=== PATIENT | female | born 1995 | race Caucasian/White ===

== ENCOUNTER 2018-01-04 05:48 | Emergency (ER) | payer BC, OTHER ==
--- NOTE | 2018-01-04 06:14 | ED Physician Documentation ---
PD HPI NECK PAIN - Stated complaint Stated Complaint: NECK PAIN - Chief complaint Chief Complaint: Back Pain - History obtained from History obtained from: Patient - History of Present Illness Timing - onset: Enter time (03:00), Today Timing - duration: Hours Timing - details: Abrupt onset Pain level now: 5 Location: Mid, Lower, Left Quality: Pain, Spasm Associated symptoms: No: Fever, Weakness, Numbness Improves with: Rest Worsened by: Movement Similar symptoms before: Has not had sx before Recently seen: Not recently seen Review of Systems Constitutional: denies: Fever, Chills, Sweats Skin: denies: Rash Musculoskeletal: reports: Neck pain. denies: Back pain, Extremity pain, Extremity swelling Neurologic: denies: Focal weakness, Numbness, Headache PD PAST MEDICAL HISTORY - Past Medical History Past Medical History: Yes Psych: Anxiety - Past Surgical History Past Surgical History: No - Present Medications Home Medications: Ambulatory Orders Medication Instructions Recorded Confirmed Cyclobenzaprine [Flexeril] 10 mg PO TID PRN #20 tablet 01/04/18 Hydrocodone/Acetaminophen 1 - 2 each PO Q6HR PRN #14 tablet 01/04/18 [Hydrocodon-Acetaminophen 5-325] Sertraline HCl [Zoloft] 100 mg PO 01/04/18 - Allergies Allergies/Adverse Reactions: Allergies Allergy/AdvReac Type Severity Reaction Status Date / Time No Known Drug Allergies Allergy Verified 01/04/18 05:54 - Social History Does the pt smoke?: No Smoking Status: Never smoker Does the pt drink ETOH?: Yes Does the pt have substance abuse?: No - Immunizations Immunizations are current?: Yes - POLST Patient has POLST: No PD ED PE NORMAL - Vitals Vital signs reviewed: Yes - General General: Alert and oriented X 3, No acute distress, Well developed/nourished - HEENT HEENT: Atraumatic, Ears normal, Pharynx benign - Neck Neck: Supple, no meningeal sign, No bony TTP, Other (mild tenderness along right lateral aspect of neck) - Respiratory Respiratory: No respiratory distress, Clear bilaterally Results - Vitals Vitals: Vital Signs - 24 hr 01/04/18 01/04/18 05:51 06:44 Temperature 37.1 C Heart Rate 78 74 Respiratory 18 18 Rate Blood Pressure 130/77 111/72 O2 Saturation 100 100 Oxygen O2 Source Room air PD MEDICAL DECISION MAKING - ED course Complexity details: considered differential, d/w patient - Sepsis Event Vital Signs: Vital Signs - 24 hr 01/04/18 01/04/18 05:51 06:44 Temperature 37.1 C Heart Rate 78 74 Respiratory 18 18 Rate Blood Pressure 130/77 111/72 O2 Saturation 100 100 Oxygen O2 Source Room air Departure - Departure Disposition: 01 Home, Self Care Clinical Impression: Cervical strain Condition: Good Instructions: ED Neck Pain No Trauma, ED Spasm Neck No Injury Prescriptions: Hydrocodone/Acetaminophen [Hydrocodon-Acetaminophen 5-325] 1 - 2 each PO Q6HR PRN #14 tablet PRN Reason: Pain Cyclobenzaprine [Flexeril] 10 mg PO TID PRN #20 tablet PRN Reason: Spasms Forms: Activity restrictions Discharge Date/Time: 01/04/18 06:44
[2018-01-04] MEDS ORDERED: IBUPROFEN 600 MG TABLET PO STA (06:30)
[2018-01-04] MEDS ORDERED: CYCLOBENZAPRINE 10 MG TABLET PO STA (06:30)
[2018-01-04 06:47] VITALS: BP 111/72
== END 2018-01-04 06:44 | disposition home or self-care (01) ==
LOC: ED 05:48
DX: S16.1XXA Strain of muscle, fascia and tendon at neck level, initial encounter (principal); X58.XXXA Exposure to other specified factors, initial encounter
CPT/HCPCS: 99283; A9270